=== PATIENT | male | born 1965 | race Caucasian/White ===

== ENCOUNTER → 2017-09-04 11:27 | Outpatient (CLI) | payer OTHER, SELFPAY ==
--- NOTE | 2017-09-04 11:30 | NM_ITS ---
History and Indications: Hypertension, diabetes, family history and chest pain. Procedure: Patient exercised on Terrance protocol 8 minutes, resting heart rate was 85 bpm resting blood pressure 108/64, with exercise maximum heart rate achieved was 1 28 bpm which is equal to 88% of the maximum predicted heart rate and a blood pressure was 173/78. The patient has good exercise capacity achieved 10.1mets of workload on treadmill, the blood pressure response to exercise was adequate. Electrocardiogram: Resting electrocardiogram showed sinus rhythm, with exercise there is less than 1.[address] segment depression noted from the baseline EKG. The EKG portion of the exercise Myoview is negative for ischemia. Cardiac stress and resting SPECT images: Cardiac stress and rest SPECT images were obtained using technetium 99 Myoview 31.5 mCi at stress and 10.9 mCi at rest. Gated SPECT further analysis of segmental wall motion and calculation of the ejection fraction also done. Cardiac stress and rest images show uniform myocardial activity without any segmental abnormality, ejection fraction is 53% with no obvious regional wall motion abnormality, right ventricle is normal size and contractility. Conclusion: 1. The EKG portion of the exercise Myoview is negative for ischemia, patient has good exercise capacity achieved 10.1mets of workload on treadmill, the blood pressure response to exercise was adequate, there was no exercise-induced chest discomfort. 2. No obvious scintigraphic evidence of reversible ischemia seen, computer derived ejection fraction is 53% with no obvious regional wall motion abnormality, right ventricle is normal size and contractility.
--- NOTE | 2017-09-04 14:01 | HMH.ITSHM ---
asa lisinopril bisoprolol omeprazole glimepride
== END ==
PROVIDERS: PCP Internal Medicine; Visit Provider Internal Medicine
DX: R07.9 Chest pain, unspecified (principal); R06.02 Shortness of breath; R00.0 Tachycardia, unspecified; I10 Essential (primary) hypertension; Z82.49 Family history of ischemic heart disease and other diseases of the circulatory system
CPT/HCPCS: 78452; 93017; A9502

== ENCOUNTER 2024-01-21 14:14 | Emergency (ER) | payer BC, SELFPAY ==
--- NOTE | 2024-01-21 14:22 | HMH.EDGENADL ---
Discharge Plan Disposition Patient Disposition: Home, Self-Care Condition: Good Prescriptions Prescriptions: No Action metformin 500 mg tablet 500 mg PO BID omeprazole 20 mg capsule,delayed release(DR/EC) 20 mg PO DAILY dapagliflozin propanediol [Farxiga] 10 mg tablet 10 mg PO QAM bupropion HCl 150 mg tablet extended release 12 hr 150 mg PO BID pioglitazone 30 mg tablet 30 mg PO QHS glimepiride 4 mg tablet 4 mg PO BID aspirin [Aspir-81] 81 mg tablet,delayed release (DR/EC) 81 mg PO DAILY Qty: 30 5RF bisoprolol fumarate 10 mg tablet 10 mg PO DAILY Qty: 30 5RF lisinopril 10 mg tablet 10 mg PO DAILY Qty: 30 5RF Referrals Follow up/Referrals: Reese Croft MD [Staff Physician] - See instructions (Gallbladder and right lower quadrant adenopathy) Jhonny Casey MD [Primary Care Provider] - See instructions Activity Restrictions/Add. Instructions Additional Instructions/Restrictions: Turn to the emergency department with any worsening signs or symptoms, any nausea vomiting abdominal pain like previous episode please return to the emergency department follow-up with primary care provider as well as general surgeon and other providers as scheduled. He did take all medicines as prescribed. Clinical Impressions Clinical Impression: Abdominal pain Instructions Patient Instructions: DI for Acute Abdominal Pain Print Language Print Language: Georgian Discharge ED Provider: Rodrigo Sharma General Adult HPI <JOEL Deluca - Last Filed: 01/21/24 17:27> General Chief complaint: Abdominal Pain Stated complaint: sent by Dr. 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 Patient tells me he has had waxing and waning midepigastric abdominal pain since Friday, pain that started last night was quite severe, he experienced some nausea no vomiting, the pain was localized to his stomach with some radiation to his testicles , he denies any other acute symptomatology to include fever chills chest pain shortness of breath, change in bowel habits, no hematuria, melena or hematochezia, has not relieved with eating or not eating, patient denies any urinary type symptomatology. He is a non-smoker denies alcohol or drug use, other past medical history consistent with type 2 diabetes, ongoing diagnosis of polymyalgia rheumatica cording to rheumatology notes, GERD, hypertension, type 2 diabetes, is on chronic steroid therapy 10 mg p.o. prednisone daily, hyperlipidemia, OA. Initial triage vitals notable for tachycardia but otherwise within normal limits. Onset (ago): day(s) Related Data Home Medications ?Medication ?Instructions ?Recorded ?Confirmed bupropion HCl 150 mg tablet,12 hr 150 mg PO BID 08/28/17 sustained-release dapagliflozin propanediol 10 mg 10 mg PO QAM 08/28/17 tablet (Farxiga) glimepiride 4 mg tablet 4 mg PO BID 08/28/17 metformin 500 mg tablet 500 mg PO BID 08/28/17 omeprazole 20 mg capsule,delayed 20 mg PO DAILY 08/28/17 release pioglitazone 30 mg tablet 30 mg PO QHS 08/28/17 Previous Rx's ?Medication ?Instructions ?Recorded aspirin 81 mg tablet,delayed 81 mg PO DAILY #30 tabs 08/28/17 release (Aspir-) bisoprolol fumarate 10 mg tablet 10 mg PO DAILY #30 tabs 09/15/17 lisinopril 10 mg tablet 10 mg PO DAILY #30 tabs 03/11/18 Allergies Allergy/AdvReac Type Severity Reaction Status Date / Time No Known Allergies Allergy Verified 09/15/17 14:01 [facility] <JOEL Deluca - Last Filed: 01/21/24 17:27> [facility] Disclaimer: The information contained in this section may have been updated after the patient was seen, as this information can be updated by other users. Medical History (Updated 01/21/24 @ 17:27 by JOEL Deluca) Tachycardia HTN (hypertension) Family history of coronary artery disease Sinus tachycardia DM (diabetes mellitus) SOB (shortness of breath) Chest pain Social History (Updated 01/21/24 @ 17:27 by JOEL Deluca) Smoking Status: Never smoker alcohol intake: current alcohol intake frequency: holidays/special occasions only substance use type: denies use current occupational status: employed Travel in the last 8 weeks: None Other Medical History Have you received the Flu Vaccine for this season: No <JOEL Deluca - Last Filed: 01/21/24 17:27> ROS Obtained: Yes All systems reviewed & no additional complaints except as documented Physical Exam <JOEL Deluca - Last Filed: 01/21/24 17:27> General General appearance: alert and in no apparent distress Head Head exam: atraumatic and normocephalic Eye Eye exam: Present PERRL and EOMI ENT ENT exam: Present mucous membranes moist Neck Neck exam: Present normal inspection Chest Chest inspection: Present normal inspection and symmetric chest wall rise Respiratory Respiratory exam: Present normal lung sounds bilaterally; Absent respiratory distress, wheezes, stridor or accessory muscle use Cardiovascular Cardiovascular exam: Present regular rate and normal rhythm Abdominal Exam Abdominal exam: Present soft and tenderness; Absent distention, guarding, rebound, rigidity or Tyalor's sign Abdominal tenderness: Present epigastrium and mild Extremities Exam Extremities exam: Present normal inspection Neurological Exam Neurological exam: Present alert and oriented X3 Psychiatric Psychiatric exam: Present normal affect Skin Skin exam: Present warm and dry Medical Decision Making <JOEL Deluca - Last Filed: 01/21/24 17:27> Medical Records Medical records reviewed: Yes I reviewed the patient's medical records. Screening: Per USPSTF and CDC recommendations, given the prevalence of disease in our region, it is our hospital?s policy to screen for HIV and viral Hepatitis for all patients aged 18 and over and those with ongoing risk factors. Jamari Inquiry Pt receiving controlled substance: No Jamari was queried for this patient: No Vital Signs: 01/21/24 14:34 01/21/24 15:00 01/21/24 15:30 Temperature 98.1 F Temperature Source Oral Pulse Rate 74 Pulse Rate [Right] 104 H Respiratory Rate 16 Blood Pressure 109/67 L 111/69 Blood Pressure [Right Arm] 124/88 Blood Pressure Mean [Right Arm] 100 Blood Pressure Source Blood Pressure Source [Right Arm] Automatic Cuff Blood Pressure Position Blood Pressure Position [Right Arm] Sitting 02 Sat by Pulse Oximetry 96 95 95 Oxygen Delivery Method Room Air 01/21/24 16:00 01/21/24 17:40 Temperature 98.1 F Temperature Source Pulse Rate 92 H 92 H Pulse Rate [Right] Respiratory Rate 18 Blood Pressure 109/70 L 106/75 L Blood Pressure [Right Arm] Blood Pressure Mean [Right Arm] Blood Pressure Source Automatic Cuff Blood Pressure Source [Right Arm] Blood Pressure Position Standing Blood Pressure Position [Right Arm] 02 Sat by Pulse Oximetry 95 Oxygen Delivery Method Room Air Lab Data Lab Results 01/21/24 14:33: WBC 6.5, RBC 5.62, Hgb 16.4, Hct 49.5, MCV 88.0, MCH 29.2, MCHC 33.2, RDW 15.3, Plt Count 185, MPV 7.7, Neut % (Auto) 75.5, Lymph % (Auto) 14.2, [place] % (Auto) 8.2, Eos % (Auto) 1.1, Baso % (Auto) 1.0, Neut # (Auto) 4.9, Lymph # (Auto) 0.9, [place] # (Auto) 0.5, Eos # (Auto) 0.1, Baso # (Auto) 0.1, Sodium 137, Potassium 4.4, Chloride 107, Carbon Dioxide 19 L, Anion Gap 15.4 H, BUN 14, Creatinine 0.90, Estimated Creat Clear 177, Estimated GFR 87, Est GFR ( Amer) 105, Glucose 342 H, Calcium 9.0, Total Bilirubin 0.9, AST 25, ALT 33, Alkaline Phosphatase 65, Total Protein 6.9, Albumin 4.1, Globulin 2.8, Albumin/Globulin Ratio 1.5, Lipase 132, Hepatitis C Antibody Non reactive, HIV 1&2 Antibody Rapid Nonreactive 01/21/24 14:40: Lactate 2.0 01/21/24 14:33 01/21/24 14:33 Orders (Tests/Meds): ED MEDICATIONS Discontinued Medications Generic Name Dose Route Start Last Admin Trade Name Freq PRN Reason Stop Dose Admin Iopamidol 75 ml 01/21/24 15:13 01/21/24 15:15 Iopamidol-370 (76%);100ml Bottle IV 01/21/24 15:14 75 ml ONCE ONE Administration Sodium Chloride 10 ml 01/21/24 15:13 01/21/24 15:15 Sodium Chloride 0.9% 10ml Syr (Rad Only) IV 01/21/24 15:14 10 ml ONCE ONE Administration ORDERS Category Date Time Status CT abdomen pelvis w con Stat Cat Scan 01/21/24 14:32 Taken Complete Blood Count Auto Diff Stat Lab 01/21/24 14:33 Completed Comprehensive Metabolic Panel Stat Lab 01/21/24 14:33 Completed HIV (1&2) Antibody Rapid Stat Lab 01/21/24 14:33 Completed Hep C Ab with Reflex to RNA Stat Lab 01/21/24 14:33 Completed Lactic Acid Stat Lab 01/21/24 14:40 Completed Lipase Stat Lab 01/21/24 14:33 Completed Medical Decision Narrative: 59 male presents emergency department with abdominal pain and nausea, at the request of his spiral winding machine helper for imaging studies, differential diagnose include but not limited to acute diverticulitis, small bowel obstruction, GERD, gastritis, PUD, colitis, ileitis, cholecystitis, pancreatitis. I discussed patient case with the attending physician and Dr. Tran Obtain basic laboratory studies include lipase and lactate as well as advanced imaging of the stomach to rule out any of the above conditions, CT abdomen pelvis with contrast will be obtained. Laboratory studies notable for hyper glycemia otherwise nonactionable The patient CT abdomen pelvis with contrast along the corresponding radiologic report, was signed and transcribed at 5:06 PM, there is abnormal soft tissue in the right lower quadrant with central calcification, differential diagnose include neoplasm or adenopathy, mild gallbladder wall thickening likely inflammatory gallbladder is partially collapsed with mild wall thickening. Patient is pain-free currently, no nausea no vomiting, vital signs are remained stable without his time in the emergency department, there is no leukocytosis, no transaminitis and laboratory studies are nonactionable. Patient need to follow-up with GI doctor, spiral winding machine helper as well as general surgeon for the adenopathy I discussed all results with the patient family the bedside. Patient family agree with current treatment plan/discharge plan, strict ED return precaution given <Rodrigo Sharma MD - Last Filed: 01/23/24 16:03> Vital Signs: 01/21/24 14:34 01/21/24 15:00 01/21/24 15:30 Temperature 98.1 F Temperature Source Oral Pulse Rate 74 Pulse Rate [Right] 104 H Respiratory Rate 16 Blood Pressure 109/67 L 111/69 Blood Pressure [Right Arm] 124/88 Blood Pressure Mean [Right Arm] 100 Blood Pressure Source Blood Pressure Source [Right Arm] Automatic Cuff Blood Pressure Position Blood Pressure Position [Right Arm] Sitting 02 Sat by Pulse Oximetry 96 95 95 Oxygen Delivery Method Room Air 01/21/24 16:00 01/21/24 17:40 Temperature 98.1 F Temperature Source Pulse Rate 92 H 92 H Pulse Rate [Right] Respiratory Rate 18 Blood Pressure 109/70 L 106/75 L Blood Pressure [Right Arm] Blood Pressure Mean [Right Arm] Blood Pressure Source Automatic Cuff Blood Pressure Source [Right Arm] Blood Pressure Position Standing Blood Pressure Position [Right Arm] 02 Sat by Pulse Oximetry 95 Oxygen Delivery Method Room Air Lab Data Lab Results 01/21/24 14:33: WBC 6.5, RBC 5.62, Hgb 16.4, Hct 49.5, MCV 88.0, MCH 29.2, MCHC 33.2, RDW 15.3, Plt Count 185, MPV 7.7, Neut % (Auto) 75.5, Lymph % (Auto) 14.2, [place] % (Auto) 8.2, Eos % (Auto) 1.1, Baso % (Auto) 1.0, Neut # (Auto) 4.9, Lymph # (Auto) 0.9, [place] # (Auto) 0.5, Eos # (Auto) 0.1, Baso # (Auto) 0.1, Sodium 137, Potassium 4.4, Chloride 107, Carbon Dioxide 19 L, Anion Gap 15.4 H, BUN 14, Creatinine 0.90, Estimated Creat Clear 177, Estimated GFR 87, Est GFR ( Amer) 105, Glucose 342 H, Calcium 9.0, Total Bilirubin 0.9, AST 25, ALT 33, Alkaline Phosphatase 65, Total Protein 6.9, Albumin 4.1, Globulin 2.8, Albumin/Globulin Ratio 1.5, Lipase 132, Hepatitis C Antibody Non reactive, HIV 1&2 Antibody Rapid Nonreactive 01/21/24 14:40: Lactate 2.0 Orders (Tests/Meds): ED MEDICATIONS Discontinued Medications Generic Name Dose Route Start Last Admin Trade Name Freq PRN Reason Stop Dose Admin Iopamidol 75 ml 01/21/24 15:13 01/21/24 15:15 Iopamidol-370 (76%);100ml Bottle IV 01/21/24 15:14 75 ml ONCE ONE Administration Sodium Chloride 10 ml 01/21/24 15:13 01/21/24 15:15 Sodium Chloride 0.9% 10ml Syr (Rad Only) IV 01/21/24 15:14 10 ml ONCE ONE Administration ORDERS Category Date Time Status CT abdomen pelvis w con Stat Cat Scan 01/21/24 14:32 Taken Complete Blood Count Auto Diff Stat Lab 01/21/24 14:33 Completed Comprehensive Metabolic Panel Stat Lab 01/21/24 14:33 Completed HIV (1&2) Antibody Rapid Stat Lab 01/21/24 14:33 Completed Hep C Ab with Reflex to RNA Stat Lab 01/21/24 14:33 Completed Lactic Acid Stat Lab 01/21/24 14:40 Completed Lipase Stat Lab 01/21/24 14:33 Completed Medical Decision Narrative: 59 male presents emergency department with abdominal pain and nausea, at the request of his spiral winding machine helper for imaging studies, differential diagnose include but not limited to acute diverticulitis, small bowel obstruction, GERD, gastritis, PUD, colitis, ileitis, cholecystitis, pancreatitis. I discussed patient case with the attending physician and Dr. Tran Obtain basic laboratory studies include lipase and lactate as well as advanced imaging of the stomach to rule out any of the above conditions, CT abdomen pelvis with contrast will be obtained. Laboratory studies notable for hyper glycemia otherwise nonactionable The patient CT abdomen pelvis with contrast along the corresponding radiologic report, was signed and transcribed at 5:06 PM, there is abnormal soft tissue in the right lower quadrant with central calcification, differential diagnose include neoplasm or adenopathy, mild gallbladder wall thickening likely inflammatory gallbladder is partially collapsed with mild wall thickening. Patient is pain-free currently, no nausea no vomiting, vital signs are remained stable without his time in the emergency department, there is no leukocytosis, no transaminitis and laboratory studies are nonactionable. Patient need to follow-up with GI doctor, spiral winding machine helper as well as general surgeon for the adenopathy I discussed all results with the patient family the bedside. Patient family agree with current treatment plan/discharge plan, strict ED return precaution given I was consulted by the ROBERTO, and we discussed the complexity of the problems being addressed. I approved the treatment and management plan for this patient's care in the Emergency Department, thus performing a substantive portion of the medical decision making. Rodrigo Sharma MD Critical Care <JOEL Deluca - Last Filed: 01/21/24 17:27> Critical Care Time Critical Care Time: No
--- NOTE | 2024-01-21 14:32 | CT_ITS ---
FINAL REPORT TECHNIQUE: After the administration of oral and intravenous contrast, axial images were obtained through the abdomen and pelvis by computed tomography. The study was performed with techniques to keep radiation dose as low as reasonably achievable, (ALARA). Individual dose reduction techniques using automated exposure control or adjustment of mA and/or kV according to the patient's size were employed. CLINICAL HISTORY: abd pain that radiates into back and testicles FINDINGS: Abdomen: There is mild bibasilar atelectasis. There is mild fatty infiltration of the liver. The gallbladder is partially collapsed with mild wall thickening. The spleen is unremarkable. The adrenals are normal. The pancreas is unremarkable. The kidneys enhance appropriately. The aorta is normal in caliber. There is no free fluid or adenopathy. Pelvis: The appendix is not identified. There is a focus of abnormal soft tissue in the right lower quadrant with central calcification medial to the cecum measuring 26 x 24 mm. Differential diagnosis would include neoplasm or adenopathy. There is mild bladder wall thickening, likely inflammatory. Sigmoid diverticulosis is identified without evidence of diverticulitis. There is no free fluid. IMPRESSION: Abnormal soft tissue in the right lower quadrant with central calcification. Differential diagnosis would include neoplasm or adenopathy. Mild bladder wall thickening, likely inflammatory. Gallbladder partially collapsed with mild wall thickening. Reviewed, Interpreted and Dictated by Reese Marques III, MD Transcribed by Jennifer Joshi Authenticated and [facility]
[2024-01-21 14:34] VITALS: BP 124/88; PULSE 104; RESP 16; TEMP 36.7; O2SAT 96; BMI 37.1
[2024-01-21 14:45] LABS: Basophils # 0.1 K/mm3 (0-0.2); Eosinophils # 0.1 K/mm3 (0.0-0.4); Eosinophils % 1.1 % (0.1-12.0); Hematocrit 49.5 % (42.0-52.0); Hemoglobin 16.4 g/dL (14.1-18.0); Lymphocytes # 0.9 K/mm3 (0.7-4.5); Lymphocytes % 14.2 % (10-50); Mean Corpuscular HGB Conc 33.2 g/dL (31.8-35.4); Mean Corpuscular Hemoglobin 29.2 pg (27.0-31.2); Mean Platelet Volume 7.7 fl (7.4-10.4); Monocytes # 0.5 K/mm3 (0.1-1.0); Monocytes % 8.2 % (1.7-9.3); Neutrophils # 4.9 K/mm3 (1.8-7.8); Neutrophils % 75.5 % (37.0-80.0); Platelet Count 185 K/mm3 (142-424); Red Blood Count 5.62 M/mm3 (4.60-6.20); Red Cell Distribution Width 15.3 % (11.5-17.5); White Blood Count 6.5 K/mm3 (4.8-10.8)
[2024-01-21 14:48] LABS: Alanine Aminotransferase 33 U/L (12-78); Albumin Level 4.1 g/dl (3.5-5.0); Albumin/Globulin Ratio 1.5 (1.1-1.8); Alkaline Phosphatase 65 U/L (38-126); Anion Gap 15.4 mEq/L (5-15); Aspartate Amino Transferase 25 U/L (17-59); Bilirubin,Total 0.9 mg/dl (0.2-1.3); Blood Urea Nitrogen 14 mg/dl (9-20); Carbon Dioxide 19 mmol/L (22.0-30.0); Chloride 107 mmol/L (98-107); Creatinine Clearance Estimated 177 mL/min (50-200); Estimated Glomerular Filt Rate 87 ml/min (>60); GFR (African American) 105 ML/MIN (>60); Globulin 2.8 g/dL (1.3-3.2); Glucose 342 mg/dl (74-100); Lipase 132 U/L (23-300); Potassium 4.4 mmoL/L (3.5-5.1); Sodium 137 mmol/L (136-145); Total Protein,Serum 6.9 g/dl (6.3-8.2)
[2024-01-21 15:00] VITALS: BP 109/67; PULSE 74; O2SAT 95
[2024-01-21] MEDS: SODIUM CHLORIDE 0.9% 10ML SYR (RAD ONLY) 10 ML IV (15:15)
[2024-01-21] MEDS: IOPAMIDOL-370 (76%);100ML BOTTLE 75 ML IV (15:15)
[2024-01-21 15:30] VITALS: BP 111/69; O2SAT 95
[2024-01-21 16:00] VITALS: BP 109/70; PULSE 92; O2SAT 95
[2024-01-21 16:01] LABS: HIV (1&2) Antibody Rapid NONREACTIVE (NONREACTIVE)
--- NOTE | 2024-01-21 17:15 | PC.NURSE ---
171 TO NURSES STATION, STATES I THINK WE HAVE BEEN HERE TOO LONG INFORMED OF PENDING RADIOLOGY READ. NOTIFIED THAT RADIOLOGY SCAN WERE SENT OFF, ASKED IF SCANS WERE GOING TO BE READ BY [facility]? RETURNED TO ROOM. DR PARKER AND YADIRA FRIED PA-C NOTIFIED OF CONCERNS 1711 SPOKE WITH RADIOLOGY TO GET POSSIBLE CT READ, WILL PRINT IF AVAILABLE 1718 YADIRA FRIED PA-C AT BEDSIDE TO UPDATE PT AND
[2024-01-21 17:40] VITALS: BP 106/75; PULSE 92; RESP 18; TEMP 36.7; O2SAT 95
[2024-01-22 05:15] LABS: HCV Ab Non Reactive (Non Reactive)
== END 2024-01-21 17:40 | disposition home or self-care (01) ==
PROVIDERS: Physician Assistant; Emergency Provider Emergency Medicine; PCP Family Medicine
DX: R10.13 Epigastric pain (principal); R11.0 Nausea
CPT/HCPCS: 74177; 80053; 83605; 83690; 85025; 86803; 87389; 99285; Q9967

== ENCOUNTER 2024-02-03 14:29 | Outpatient (CLI) | payer BC, SELFPAY ==
[2024-02-03 15:12] LABS: Blood Urea Nitrogen 11 mg/dl (9-20); Estimated Glomerular Filt Rate 100 ml/min (>60); GFR (African American) 121 ML/MIN (>60)
== END 2024-02-03 23:59 | disposition home or self-care (01) ==
LOC: LAB 14:29
PROVIDERS: PCP Family Medicine; Visit Provider Surgery
DX: R10.9 Unspecified abdominal pain (principal)
CPT/HCPCS: 36415; 82565; 84520

== ENCOUNTER 2024-02-25 08:13 | Outpatient (CLI) | payer BC, SELFPAY | END 2024-02-25 23:59 | disposition home or self-care (01) | LOC: RAD 08:14 | PROVIDERS: PCP Family Medicine; Visit Provider Surgery | DX: R19.00 Intra-abdominal and pelvic swelling, mass and lump, unspecified site (principal) ==